=== PATIENT | female | born 1995 | race African-American/Black ===

== ENCOUNTER 2017-09-14 16:04 | Emergency (ER) | payer MEDICAID ==
[~2017-09-14 16:04] MED LIST: IBUP600T26 PO; IRON325T2 PO; SPRI28TA PO
[2017-09-14 16:06] VITALS: BP 144/90; PULSE 109; RESP 12; TEMP 97.9; O2SAT 100
[2017-09-14 17:22] LABS: AUTOMATED NEUTROPHIL # 3.2 TH/MM3 (1.8-7.7); BASOPHIL # 0.1 TH/MM3 (0-0.2); BASOPHIL % 1.5 % (0.0-2.0); EOSINOPHIL # 0.1 TH/MM3 (0-0.4); EOSINOPHIL % 2.4 % (0.0-4.0); HEMO FLAGS DIFF FINAL; LYMPH % 32.6 % (9.0-44.0); LYMPHOCYTE # 1.9 TH/MM3 (1.0-4.8); MEAN CELL VOLUME 60.6 FL (80.0-100.0); MEAN CORPUSCULAR HEMOGLOBIN 17.6 PG (27.0-34.0); MONO % 9.3 % (0.0-8.0); NEUT % 54.2 % (16.0-70.0); PLATELET COUNT 314 TH/MM3 (150-450); RED BLOOD COUNT 4.63 MIL/MM3 (4.00-5.30); RED CELL DISTRIBUTION WIDTH 19.6 % (11.6-17.2); WHITE BLOOD COUNT 5.8 TH/MM3 (4.0-11.0)
[2017-09-14 17:25] LABS: MEAN CORPUSCULAR HGB CONC 29.1 % (32.0-36.0)
[2017-09-14 17:45] LABS: BICARBONATE 26.1 MEQ/L (21.0-32.0); POTASSIUM 3.9 MEQ/L (3.5-5.1)
[2017-09-14] MEDS ORDERED: PROV10TA PO (17:53)
--- NOTE | 2017-09-14 19:09 | PD ---
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 This patient complains of irregular vaginal bleeding. This is been going on and off for many months. She has history of anemia. She doesn't know how anemic she is usually. She doesn't think she is . She denies discharge or lesions or fever or pelvic pain. Symptoms severity is mild to moderate. No alleviating factors. No presyncopal symptoms. Denies excessive fatigue PFSH Past Medical History Anemia: Yes Diminished Hearing: No Medical other: Yes Tetanus Vaccination: > 5 Years Influenza Vaccination: No ?: Not LMP: now Past Surgical History Surgical History: No Previous Surgery Social History Alcohol Use: No Tobacco Use: No Substance Use: No Allergies-Medications (Allergen,Severity, Reaction): Coded Allergies: No Known Allergies (Verified Adverse Reaction, Unknown, 09/14/17) Reported Meds & Prescriptions Reported Meds & Active Scripts Active Provera (Medroxyprogesterone Acetate) 10 Mg Tab 10 Mg PO DAILY Start day 21 Review of Systems General / Constitutional: No: Fever Eyes: No: Visual changes HENT: No: Headaches Cardiovascular: No: Chest Pain or Discomfort Respiratory: No: Shortness of Breath Gastrointestinal: No: Abdominal Pain Genitourinary: Positive: Vaginal Bleeding, No: Dysuria Musculoskeletal: No: Pain Skin: No Rash Neurologic: No: Weakness Psychiatric: No: Depression Endocrine: No: Polydipsia Hematologic/Lymphatic: No: Easy Bruising Physical Exam Narrative GENERAL: Well-nourished, well-developed patient in no apparent distress. SKIN: Focused skin assessment reveals no rash and nodules. Skin is Warm and dry. HEAD: Atraumatic. Normocephalic. EYES: Pupils equal and round. No scleral icterus. No injection or drainage. ENT: No nasal bleeding or discharge. Mucous membranes pink and moist. NECK: Trachea midline. No JVD. CARDIOVASCULAR: Regular rate and rhythm. No murmur appreciated. RESPIRATORY: No accessory muscle use. Clear to auscultation. Breath sounds equal bilaterally. GASTROINTESTINAL: Abdomen soft, non-tender, nondistended. Hepatic and splenic margins not palpable. MUSCULOSKELETAL: No obvious deformities. No clubbing. No cyanosis. No edema. NEUROLOGICAL: Awake and alert. No obvious cranial nerve deficits. Motor grossly within normal limits. Normal speech. PSYCHIATRIC: Appropriate mood and affect; insight and judgment normal. Data Data Last Documented VS Vital Signs Date Time Temp Pulse Resp B/P (MAP) Pulse Ox O2 Delivery O2 Flow Rate FiO2 09/14/17 17:05 16 09/14/17 16:06 97.9 109 144/90 (108) 100 Orders Orders Complete Blood Count With Diff (09/14/17 16:31) Basic Metabolic Panel (Bmp) (09/14/17 16:31) Ed Urine Pregnancytest Poc (09/14/17 17:30) Ed Discharge Order (09/14/17 18:57) Labs Laboratory Tests Test 09/14/17 17:00 White Blood Count 5.8 TH/MM3 Red Blood Count 4.63 MIL/MM3 Hemoglobin 8.2 GM/DL Hematocrit 28.0 % Mean Corpuscular Volume 60.6 FL Mean Corpuscular Hemoglobin 17.6 PG Mean Corpuscular Hemoglobin Concent 29.1 % Red Cell Distribution Width 19.6 % Platelet Count 314 TH/MM3 Mean Platelet Volume 9.2 FL Neutrophils (%) (Auto) 54.2 % Lymphocytes (%) (Auto) 32.6 % Monocytes (%) (Auto) 9.3 % Eosinophils (%) (Auto) 2.4 % Basophils (%) (Auto) 1.5 % Neutrophils # (Auto) 3.2 TH/MM3 Lymphocytes # (Auto) 1.9 TH/MM3 Monocytes # (Auto) 0.5 TH/MM3 Eosinophils # (Auto) 0.1 TH/MM3 Basophils # (Auto) 0.1 TH/MM3 CBC Comment DIFF FINAL Differential Comment Blood Urea Nitrogen 14 MG/DL Creatinine 0.84 MG/DL Random Glucose 81 MG/DL Calcium Level 8.5 MG/DL Sodium Level 141 MEQ/L Potassium Level 3.9 MEQ/L Chloride Level 107 MEQ/L Carbon Dioxide Level 26.1 MEQ/L Anion Gap 8 MEQ/L Estimat Glomerular Filtration Rate 105 ML/MIN MDM Medical Decision Making Medical Screen Exam Complete: Yes Emergency Medical Condition: Yes Medical Record Reviewed: Yes Differential Diagnosis Ectopic , dysfunction uterine bleeding, fibroids Narrative Course I have reviewed the patient's electronic medical record. No prior blood counts on file to compare Urine is negative Metabolic profile and LFTs are normal CBC shows normal white count and platelets but she is anemic with hemoglobin of 8.2 She is not symptomatic and does not require urgent transfusion Recommend gynecology follow-up as an outpatient. 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 Take Provera for one week as prescribed Start iron supplementation Med/Other Pt SpecificInfo: Other Scripts Medroxyprogesterone Acetate (Provera) 10 Mg Tab 10 MG PO DAILY for Uterine bleeding, #7 TAB 0 Refills Start day 21 Prov: Julio Bolden MD 09/14/17 Disposition: 01 DISCHARGE HOME Condition: Stable Julio Bolden MD Sep 14, 2017 19:09
== END 2017-09-14 19:35 | disposition home or self-care (01) ==
LOC: NEPD 16:04
DX: N93.9 Abnormal uterine and vaginal bleeding, unspecified (principal); D64.9 Anemia, unspecified
CPT/HCPCS: 80048; 84703; 85025; 99283